=== PATIENT | male | born 1930 | race African-American/Black ===

== ENCOUNTER 2019-01-04 12:18 | Emergency (ER) | payer MEDICARE ==
[~2019-01-04] VITALS: Ht 188 cm; Wt 77.1 kg
[~2019-01-04 12:18] MED LIST: AMLO10TA8 PO; LOSA25TA54 PO; METF500T16 PO; METO-239 PO; PRAV20TA2 PO; REPA1TAB6 PO; RIVA20TA2 PO; SITA100T PO
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
--- NOTE | 2019-01-04 13:35 | EKG ---
[facility] [address] [place] [address] Test Date: 2019-01-04 Test Time: 12:41:28 Pat Name: MINERVA PALAFOX Department: Room: Gender: M Geriatric Care Manager: : 1930 Requested By: HARRIET NICOLAS Order Number: [id number] Reading MD: Measurements Intervals [place] Rate: 58 P: 41 MO: 170 QRS: -19 QRSD: 92 T: 57 QT: 380 QTc: 376 Interpretive Statements SINUS RHYTHM LEFTWARD AXIS NO SPECIFIC ECG ABNORMALITIES RI6.01 No previous ECG available for comparison
[2019-01-04 13:38] LABS: BASO # 0.1 x10^3/uL (0.0-0.2); BASO % 1 % (0-3); EOS # 0.1 x10^3/uL (0.0-0.7); EOS % 1 % (0-3); HEMATOCRIT 36.4 % (39.0-53.0); HEMOGLOBIN 11.9 g/dL (13.0-17.5); LYMPH # 1.7 x10^3/uL (1.0-4.8); LYMPH % 23 % (24-48); MEAN CORPUSCULAR HEMOGLOBIN 28 pg (25-35); MEAN CORPUSCULAR HGB CONC 33 g/dL (31-37); MEAN CORPUSCULAR VOLUME 87 fL (79-100); MONO # 0.5 x10^3/uL (0.0-1.1); MONO % 7 % (0-9); NEUT # 4.9 x10^3/uL (1.8-7.7); NEUT % 68 % (31-73); PLATELET COUNT 191 x10^3/uL (140-400); RED BLOOD COUNT 4.19 x10^6/uL (4.30-5.70); RED CELL DISTRIBUTION WIDTH 16.2 % (11.5-14.5); WHITE BLOOD COUNT 7.3 x10^3/uL (4.0-11.0)
[2019-01-04 13:55] LABS: ALBUMIN 3.7 g/dL (3.4-5.0); ALBUMIN/GLOBULIN RATIO 0.9 (1.0-1.7); CREATININE 1.3 mg/dL (0.7-1.3); POTASSIUM 4.9 mmol/L (3.5-5.1); TOTAL BILIRUBIN 0.5 mg/dL (0.2-1.0); TOTAL PROTEIN 7.9 g/dL (6.4-8.2)
[2019-01-04 13:55] LABS: BILIRUBIN,URINE NEGATIVE (NEG); CLARITY,URINE CLEAR; COLOR,URINE YELLOW; NITRITE,URINE NEGATIVE (NEG); PH,URINE 5.5; PROTEIN,URINE NEGATIVE (NEG-TRACE); UROBILINOGEN,URINE 0.2 mg/dL (0.2 mg/dL)
[2019-01-04 14:00] LABS: PROTHROMBIN TIME PATIENT 16.4 SEC (11.7-14.0)
[2019-01-04 14:08] LABS: CALCIUM 8.9 mg/dL (8.5-10.1)
[2019-01-04 14:19] LABS: BACTERIA,URINE 0 /HPF (0-FEW); RBC,URINE OCC /HPF (0-2); WBC,URINE OCC /HPF (0-4)
--- NOTE | 2019-01-04 14:45 | RAD ---
PQRS Compliance statement: One or more of the following individualized dose reduction techniques were utilized for this examination: 1. Automated exposure control. 2. Adjustment of the mA and/or kV according to patient size. 3. Use of iterative reconstruction technique. Indication:Abdominal pain. TECHNIQUE: CT abdomen and pelvis without IV contrast with multiplanar reformats. COMPARISON: None FINDINGS: Limited evaluation of solid abdominal and pelvic organs due to lack of IV contrast. Heart is normal in size. No pericardial or pleural effusion. Coronary artery calcifications noted. Clear lung bases. Fluid density lesion in right hepatic dome measuring 2.6 x 2.1 cm most likely simple hepatic cyst. Otherwise, noncontrast appearance of the liver, gallbladder, adrenals are normal limits. Spleen is nonvisualized likely surgically absent. Diffusely atrophic pancreas. No nephrolithiasis or hydronephrosis. No enlarged retroperitoneal or pelvic adenopathy. Diffuse mild atherosclerotic plaque in the abdominal aorta. No free pelvic fluid or ascites. No bowel obstruction. Appendix is not visualized. 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 Urinary bladder demonstrates no radiopaque stone. No pneumoperitoneum. Mild dextroscoliosis of the lumbar spine. No suspicious bony lesion. IMPRESSION: Limited evaluation of solid abdominal and pelvic organs due to lack of IV contrast. 1. No bowel obstruction. 2. No nephrolithiasis or hydronephrosis. Electronically signed by: Sal Shabazz DO (01/04/2019 2:42 PM) [facility]
--- NOTE | 2019-01-04 14:47 | RAD ---
PQRS Compliance statement: One or more of the following individualized dose reduction techniques were utilized for this examination: 1. Automated exposure control. 2. Adjustment of the mA and/or kV according to patient size. 3. Use of iterative reconstruction technique. Indication:Altered mental status. TECHNIQUE: CT head without IV contrast COMPARISON:01/16/2015 FINDINGS: No pathologic extra-axial or intra-axial fluid collection. Mild atrophy with ex vacuo dilation of the ventricles. The basal cisterns are within normal limits. No acute intracranial bleed. Periventricular and deep white matter low-attenuation is noted. No focal loss of cosme-white differentiation. No suspicious calvarial lesion. Visualized paranasal sinuses and mastoid air cells are clear. Atherosclerotic plaque seen in the bilateral cavernous segments of the ICA. IMPRESSION: 1. No acute intracranial bleed. 2. White matter changes likely secondary to chronic microvascular ischemic disease. If concern for acute ischemic stroke is high, please consider MRI brain. Electronically signed by: Sal Shabazz DO (01/04/2019 2:44 PM) [facility]
[2019-01-04 15:45] VITALS: BP 179/79
[2019-01-04 16:37] LABS: ANISOCYTOSIS SLIGHT; PLT ESTIMATE ADEQUATE (ADEQUATE)
[2019-01-04 16:38] LABS: ACANTHOCYTES FEW; BIZZARE CELLS FEW; SCHISTOCYTES FEW
== END 2019-01-04 16:20 | disposition home or self-care (01) ==
LOC: ER 12:18
DX: R32 Unspecified urinary incontinence (principal); R10.31 Right lower quadrant pain; D64.9 Anemia, unspecified; R53.1 Weakness; R74.8 Abnormal levels of other serum enzymes; G30.9 Alzheimer's disease, unspecified; F02.80 Dementia in other diseases classified elsewhere, unspecified severity, without behavioral disturbance, psychotic disturbance, mood disturbance, and anxiety; E78.00 Pure hypercholesterolemia, unspecified; I11.0 Hypertensive heart disease with heart failure; I50.9 Heart failure, unspecified; E11.9 Type 2 diabetes mellitus without complications; G89.29 Other chronic pain; Z98.890 Other specified postprocedural states
CPT/HCPCS: 36415; 70450; 74176; 80053; 81001; 82550; 82962; 83605; 83690; 84484; 85025; 85610; 93005; 99285-25

== ENCOUNTER → 2019-01-21 | Outpatient (CLI) | payer MEDICARE ==
[2019-01-04 15:45] VITALS: BP 179/79
--- NOTE | 2019-01-21 15:08 | CARD ---
MR#: [id number] Date of Study: 01/21/2019 Ordering Physician: SWETA CAMERON, Referring Physician: SWETA CAMERON, Tech: Jonelle Champion MAMADOU APPROVED REPORT EXAM: Two-dimensional and M-mode echocardiogram with Doppler and color Doppler. Other Information Quality : Good INDICATION Cardiomyopathy 2D DIMENSIONS RVDd2.3 (2.9-3.5cm)Left Atrium(2D)4.0 (1.6-4.0cm) IVSd0.9 (0.7-1.1cm)Aortic Root(2D)3.2 (2.0-3.7cm) LVDd5.7 (3.9-5.9cm)LVOT Diameter2.4 (1.8-2.4cm) PWd0.9 (0.7-1.1cm)LVDs3.7 (2.5-4.0cm) FS (%) 25.0 %SV98.2 ml LVEF(%)50.0 (>50%) Aortic Valve AoV Peak Navjot.144.6cm/sAoV VTI27.9cm AO Peak GR.8.4mmHgLVOT Peak Navjot.85.7cm/s AO Mean GR.5mmHgAVA (VMAX)2.79cm2 GASTON (VTI)3.20cm2 Mitral Valve MV E Ztczicaw93.2cm/sMV DECEL DMOT460cw MV A Qidvvnhq25.6cm/sE/A Ratio0.6 Tricuspid Valve TR P. Ygckqedg708br/sRAP LMNXUKNG0utPg TR Peak Gr.20lkDpVLSP85waEo Pulmonary Vein S1 Conuhqrg64.4cm/sD2 Vllgpljo43.6cm/s LEFT VENTRICLE The left ventricle is normal size. There is normal left ventricular wall thickness. Left ventricle sy stolic function is low normal. The Ejection Fraction is 50-55%. There is normal LV segmental wall mot ion. Transmitral Doppler flow pattern is Grade I-abnormal relaxation pattern. RIGHT VENTRICLE The right ventricle is normal size. The right ventricular systolic function is normal. ATRIA The left atrium is mildly dilated. The right atrium size is normal. The interatrial septum is intact with no evidence for an atrial septal defect or patent foramen ovale as noted on 2-D or Doppler imagi ng. AORTIC VALVE The aortic valve is moderately thickened but opens well. Doppler and Color Flow revealed no significa nt aortic regurgitation. There is no significant aortic valvular stenosis. MITRAL VALVE The mitral valve is calcified but opens well. There is no evidence of mitral valve prolapse. There is no mitral valve stenosis. Doppler and Color-flow revealed mild mitral regurgitation. TRICUSPID VALVE The tricuspid valve is normal in structure and function. Doppler and Color Flow revealed mild tricusp id regurgitation. The PA pressure was estimated at 34 mmHg. There is no tricuspid valve stenosis. PULMONIC VALVE The pulmonic valve is not well visualized. Doppler and Color Flow revealed trace to mild pulmonic marck vular regurgitation. There is no pulmonic valvular stenosis. GREAT VESSELS The aortic root is normal in size. The ascending aorta is normal in size. The IVC is normal in size a nd collapses >50% with inspiration. PERICARDIAL EFFUSION There is no evidence of significant pericardial effusion. Critical Notification Critical Value: No <Conclusion> Left ventricle systolic function is low normal. The Ejection Fraction is 50-55%. There is normal LV segmental wall motion. Doppler and Color Flow revealed mild tricuspid regurgitation. The PA pressure was estimated at 34 mmH g. Signed by : Osiel Leahy, Electronically Approved : 01/21/2019 15:08:20
== END | disposition home or self-care (01) ==
LOC: ECHO 12:48
PROVIDERS: ATTEND Internal Medicine Cardiovascular Disease
DX: I08.8 Other rheumatic multiple valve diseases (principal); I42.9 Cardiomyopathy, unspecified
CPT/HCPCS: 93306

== ENCOUNTER 2019-03-17 09:40 | Inpatient (IN) | payer MEDICARE ==
[~2019-03-17] VITALS: Ht 182.9 cm; Wt 71.4 kg
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
--- NOTE | 2019-03-17 11:20 | RAD ---
CT HEAD WO CONTRAST Clinical indications: Altered mental status. Confusion. COMPARISON: January 04, 2019. Technique: Noncontrast axial cross sectional scanning of the head was performed. PQRS compliance Statement One or more of the following individualized dose reduction techniques were utilized for this study: 1. Automated exposure control 2. Adjustment of the mA and/or kV according to patient size 3. Use of iterative reconstruction technique Findings: No acute intracranial hemorrhage or midline shift or mass-effect or hydrocephalus or extra-axial fluid collection is seen. Generalized cerebral atrophy is evident. Bilateral periventricular hypodensity is seen consistent with chronic small vessel ischemic disease which is unchanged. 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 No new focal hypodense area or sulci effacement is seen to indicate an acute infarct or edema radiographically. No skull fracture or pneumocephalus is seen. No opacification of the mastoid sinuses or the middle ear cavities or the paranasal sinuses is seen. The maxillary sinuses are not seen in this study. Impression: No new intracranial abnormality is seen. Chronic ischemic disease. Electronically signed by: Jarad Harley MD (03/17/2019 11:17 AM) [facility]
[2019-03-17 11:28] LABS: BASO % 0 % (0-3); EOS % 0 % (0-3); HEMATOCRIT 30.2 % (39.0-53.0); LYMPH # 0.7 x10^3/uL (1.0-4.8); LYMPH % 7 % (24-48); MEAN CORPUSCULAR HEMOGLOBIN 28 pg (25-35); MEAN CORPUSCULAR HGB CONC 33 g/dL (31-37); MEAN CORPUSCULAR VOLUME 85 fL (79-100); MONO # 0.8 x10^3/uL (0.0-1.1); MONO % 8 % (0-9); NEUT # 8.3 x10^3/uL (1.8-7.7); NEUT % 85 % (31-73); PLATELET COUNT 292 x10^3/uL (140-400); RED BLOOD COUNT 3.53 x10^6/uL (4.30-5.70); RED CELL DISTRIBUTION WIDTH 14.6 % (11.5-14.5); WHITE BLOOD COUNT 9.8 x10^3/uL (4.0-11.0)
[2019-03-17 11:39] LABS: CALCIUM 9.2 mg/dL (8.5-10.1); CREATININE 1.3 mg/dL (0.7-1.3); POTASSIUM 4.9 mmol/L (3.5-5.1)
[2019-03-17 11:43] LABS: PROTHROMBIN TIME PATIENT 19.2 SEC (11.7-14.0)
[2019-03-17 11:44] LABS: ALBUMIN 3.3 g/dL (3.4-5.0); ALBUMIN/GLOBULIN RATIO 0.7 (1.0-1.7); TOTAL BILIRUBIN 0.3 mg/dL (0.2-1.0); TOTAL PROTEIN 7.9 g/dL (6.4-8.2)
[2019-03-17] MEDS ORDERED: LABETALOL 20 MG/4 ML DISP.SYRIN. IVP ONE (12:00)
--- NOTE | 2019-03-17 12:28 | EKG ---
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
--- NOTE | 2019-03-17 13:03 | RAD ---
EXAM: Right lower extremity arterial Doppler sonogram. HISTORY: Cold foot. TECHNIQUE: Snow scale and color Doppler sonographic imaging of the right lower extremity arteries with spectral waveform analysis was performed. COMPARISON: None. FINDINGS: There are normal peak systolic velocities within the right lower extremity arteries. There are triphasic waveforms from the common femoral artery to popliteal artery and biphasic waveforms within the calf arteries. No hemodynamically significant stenosis or occlusion is seen. IMPRESSION: No Doppler evidence of hemodynamically significant stenosis or occlusion. Electronically signed by: Nanette Lopez MD (03/17/2019 1:00 PM) [place] [id number]
[2019-03-17] MEDS ORDERED: ONDANSETRON PF 4 MG/2 ML VIAL. IV PRN (13:15)
[2019-03-17] MEDS ORDERED: HYDROcodone/APAP 5/325MG 1 TAB TABLET PO ONE (14:15)
[2019-03-17 17:31] LABS: BILIRUBIN,URINE NEGATIVE (NEG); CLARITY,URINE CLOUDY; COLOR,URINE YELLOW; NITRITE,URINE NEGATIVE (NEG); PROTEIN,URINE 100 mg/dL (NEG-TRACE); UROBILINOGEN,URINE 0.2 mg/dL (0.2 mg/dL)
[2019-03-17 17:38] LABS: BACTERIA,URINE MANY /HPF (0-FEW); RBC,URINE OCC /HPF (0-2); SQUAMOUS EPITHELIAL CELL,UR OCC /LPF; WBC,URINE TNTC /HPF (0-4)
[2019-03-17 19:51] VITALS: BP 146/61
[2019-03-17 23:27] VITALS: BP 172/87
[2019-03-18 03:40] VITALS: BP 154/77
[2019-03-18 07:15] VITALS: BP 162/77
[2019-03-18] MEDS ORDERED: ACETAMINOPHEN 500 MG TABLET PO PRN (07:45)
[2019-03-18] MEDS ORDERED: DEXTROSE 50% 25 GM / 50ML DISP.SYRIN. IV PRN (07:45)
[2019-03-18] MEDS ORDERED: PRAV80TA2 PO (07:47)
[2019-03-18] MEDS ORDERED: SITA100T PO (07:47)
[2019-03-18] MEDS ORDERED: LOSA-73 PO (07:47)
[2019-03-18] MEDS ORDERED: REPA1TAB6 PO (07:47)
[2019-03-18] MEDS ORDERED: FURO20TA3 PO (07:47)
[2019-03-18] MEDS ORDERED: ASPI-612 PO (07:47)
[2019-03-18] MEDS ORDERED: GLIP5TAB22 PO (07:47)
--- NOTE | 2019-03-18 07:58 | PDOC ---
PROGRESS NOTES Subjective Subjective Patient sleeping, disoriented when awakened. Objective Objective Vital Signs Date Time Temp Pulse Resp B/P (MAP) Pulse Ox O2 Delivery O2 Flow Rate FiO2 03/18/19 03:40 99.2 84 18 154/77 (102) 97 Room Air 99.2 Intake and Output 03/18/19 07:00 Output Total 50 ml Balance -50 ml Output Urine Total 50 ml # Voids 5 Physical Exam Abdomen: Normal bowel sounds, Soft, No tenderness Heart: Regular rate Extremities: No edema General: Alert, No acute distress Lungs: Other (BS mildly decreased throughout but CTA) Assessment Assessment Problems Medical Problems: (1) Frequent falls Status: Acute (2) Syncope and collapse Status: Acute Plan Plan of Care 1. Syncope - found down at home, no further details available about circumstances or duration. Stable since admission, continue to monitor. 2. UTI - UA with WBC's TNTC. Culture pending, will start Rocephin. 3. memory loss - patient has history of this. CT head confirms small previous CVA and ischemic microvascular changes. Continue ASA and supportive care. Not safe to stay alone, was having more trouble with this at Independent Living facility. Will have SW talk to family about discharge plans. 4. DM2 - continue home meds, ADA diet and FSBG ordered. 5. Hx PAF - in sinus on telemetry, continue present medications including Xarelto per Cardiology. 6. HTN - continue home meds. 7. OA with some chronic joint pains - continue Tylenol prn. Xrays at admission show no acute fractures. 8. CHF - recent Echo showed preserved EF of 50% with mild diastolic dysfunction. Patient has been on low dose Lasix for LE edema, will hold and follow. 9. debility - therapies ordered. May have some difficulty participating due to memory loss. Comment Review of Relevant I have reviewed the following items morgan (where applicable) has been applied. Labs Laboratory Tests Test 03/17/19 10:40 03/17/19 17:18 03/17/19 17:24 03/17/19 20:40 White Blood Count 9.8 x10^3/uL (4.0-11.0) Red Blood Count 3.53 x10^6/uL (4.30-5.70) Hemoglobin 10.0 g/dL (13.0-17.5) Hematocrit 30.2 % (39.0-53.0) Mean Corpuscular Volume 85 fL (79-100) Mean Corpuscular Hemoglobin 28 pg (25-35) Mean Corpuscular Hemoglobin Concent 33 g/dL (31-37) Red Cell Distribution Width 14.6 % (11.5-14.5) Platelet Count 292 x10^3/uL (140-400) Neutrophils (%) (Auto) 85 % (31-73) Lymphocytes (%) (Auto) 7 % (24-48) Monocytes (%) (Auto) 8 % (0-9) Eosinophils (%) (Auto) 0 % (0-3) Basophils (%) (Auto) 0 % (0-3) Neutrophils # (Auto) 8.3 x10^3/uL (1.8-7.7) Lymphocytes # (Auto) 0.7 x10^3/uL (1.0-4.8) Monocytes # (Auto) 0.8 x10^3/uL (0.0-1.1) Eosinophils # (Auto) 0.0 x10^3/uL (0.0-0.7) Basophils # (Auto) 0.0 x10^3/uL (0.0-0.2) Prothrombin Time 19.2 SEC (11.7-14.0) Prothromb Time International Ratio 1.6 (0.8-1.1) Activated Partial Thromboplast Time 39 SEC (24-38) Sodium Level 142 mmol/L (136-145) Potassium Level 4.9 mmol/L (3.5-5.1) Chloride Level 105 mmol/L (98-107) Carbon Dioxide Level 27 mmol/L (21-32) Anion Gap 10 (6-14) Blood Urea Nitrogen 21 mg/dL (8-26) Creatinine 1.3 mg/dL (0.7-1.3) Estimated GFR (Cockcroft-Gault) 63.0 BUN/Creatinine Ratio 16 (6-20) Glucose Level 274 mg/dL (70-99) Calcium Level 9.2 mg/dL (8.5-10.1) Magnesium Level 2.0 mg/dL (1.8-2.4) Total Bilirubin 0.3 mg/dL (0.2-1.0) Aspartate Amino Transf (AST/SGOT) 16 U/L (15-37) Alanine Aminotransferase (ALT/SGPT) 17 U/L (16-63) Alkaline Phosphatase 81 U/L (46-116) Troponin I Quantitative < 0.017 ng/mL (0.000-0.055) Total Protein 7.9 g/dL (6.4-8.2) Albumin 3.3 g/dL (3.4-5.0) Albumin/Globulin Ratio 0.7 (1.0-1.7) Glucose (Fingerstick) 273 mg/dL (70-99) 334 mg/dL (70-99) Urine Color Yellow Urine Clarity Cloudy Urine pH 5.0 Urine Specific [place] 1.015 Urine Protein 100 mg/dL (NEG-TRACE) Urine Glucose (UA) 500 mg/dL (NEG) Urine Ketones (Stick) Negative mg/dL (NEG) Urine Blood Moderate (NEG) Urine Nitrite Negative (NEG) Urine Bilirubin Negative (NEG) Urine Urobilinogen Dipstick 0.2 mg/dL (0.2 mg/dL) Urine Leukocyte Esterase Large (NEG) Urine RBC Occ /HPF (0-2) Urine WBC Tntc /HPF (0-4) Urine Squamous Epithelial Cells Occ /LPF Urine Bacteria Many /HPF (0-FEW) Urine Mucus Slight /LPF Laboratory Tests Test 03/17/19 10:40 03/17/19 17:18 03/17/19 17:24 03/17/19 20:40 White Blood Count 9.8 x10^3/uL (4.0-11.0) Red Blood Count 3.53 x10^6/uL (4.30-5.70) Hemoglobin 10.0 g/dL (13.0-17.5) Hematocrit 30.2 % (39.0-53.0) Mean Corpuscular Volume 85 fL (79-100) Mean Corpuscular Hemoglobin 28 pg (25-35) Mean Corpuscular Hemoglobin Concent 33 g/dL (31-37) Red Cell Distribution Width 14.6 % (11.5-14.5) Platelet Count 292 x10^3/uL (140-400) Neutrophils (%) (Auto) 85 % (31-73) Lymphocytes (%) (Auto) 7 % (24-48) Monocytes (%) (Auto) 8 % (0-9) Eosinophils (%) (Auto) 0 % (0-3) Basophils (%) (Auto) 0 % (0-3) Neutrophils # (Auto) 8.3 x10^3/uL (1.8-7.7) Lymphocytes # (Auto) 0.7 x10^3/uL (1.0-4.8) Monocytes # (Auto) 0.8 x10^3/uL (0.0-1.1) Eosinophils # (Auto) 0.0 x10^3/uL (0.0-0.7) Basophils # (Auto) 0.0 x10^3/uL (0.0-0.2) Prothrombin Time 19.2 SEC (11.7-14.0) Prothromb Time International Ratio 1.6 (0.8-1.1) Activated Partial Thromboplast Time 39 SEC (24-38) Sodium Level 142 mmol/L (136-145) Potassium Level 4.9 mmol/L (3.5-5.1) Chloride Level 105 mmol/L (98-107) Carbon Dioxide Level 27 mmol/L (21-32) Anion Gap 10 (6-14) Blood Urea Nitrogen 21 mg/dL (8-26) Creatinine 1.3 mg/dL (0.7-1.3) Estimated GFR (Cockcroft-Gault) 63.0 BUN/Creatinine Ratio 16 (6-20) Glucose Level 274 mg/dL (70-99) Calcium Level 9.2 mg/dL (8.5-10.1) Magnesium Level 2.0 mg/dL (1.8-2.4) Total Bilirubin 0.3 mg/dL (0.2-1.0) Aspartate Amino Transf (AST/SGOT) 16 U/L (15-37) Alanine Aminotransferase (ALT/SGPT) 17 U/L (16-63) Alkaline Phosphatase 81 U/L (46-116) Troponin I Quantitative < 0.017 ng/mL (0.000-0.055) Total Protein 7.9 g/dL (6.4-8.2) Albumin 3.3 g/dL (3.4-5.0) Albumin/Globulin Ratio 0.7 (1.0-1.7) Glucose (Fingerstick) 273 mg/dL (70-99) 334 mg/dL (70-99) Urine Color Yellow Urine Clarity Cloudy Urine pH 5.0 Urine Specific [place] 1.015 Urine Protein 100 mg/dL (NEG-TRACE) Urine Glucose (UA) 500 mg/dL (NEG) Urine Ketones (Stick) Negative mg/dL (NEG) Urine Blood Moderate (NEG) Urine Nitrite Negative (NEG) Urine Bilirubin Negative (NEG) Urine Urobilinogen Dipstick 0.2 mg/dL (0.2 mg/dL) Urine Leukocyte Esterase Large (NEG) Urine RBC Occ /HPF (0-2) Urine WBC Tntc /HPF (0-4) Urine Squamous Epithelial Cells Occ /LPF Urine Bacteria Many /HPF (0-FEW) Urine Mucus Slight /LPF Medications Current Medications Labetalol HCl (Normodyne Iv Push) 20 mg 1X ONCE IVP Last administered on 03/17/19at 12:14; Start 03/17/19 at 12:00; Stop 03/17/19 at 12:01; Status DC Ondansetron HCl (Zofran) 4 mg PRN Q8HRS PRN IV NAUSEA/VOMITING; Start 03/17/19 at 13:15; Stop 03/18/19 at 13:14 Acetaminophen/ Hydrocodone Bitart (Lortab 5/325) 1 tab 1X ONCE PO Last administered on 03/17/19at 14:23; Start 03/17/19 at 14:15; Stop 03/17/19 at 14:16; Status DC Insulin Human Lispro (HumaLOG) 0-7 UNITS TIDWMEALS SQ ; Start 03/18/19 at 08:00 Dextrose (Dextrose 50%-Water Syringe) 12.5 gm PRN Q15MIN PRN IV SEE COMMENTS; Start 03/18/19 at 07:45 Ceftriaxone Sodium (Rocephin) 1 gm Q24H IVP ; Start 03/18/19 at 09:00 Acetaminophen (Tylenol) 1,000 mg PRN Q6HRS PRN PO pain; Start 03/18/19 at 07:45 Active Scripts Active Pravastatin Sodium 80 Mg Tablet 1 Tab PO DAILY Januvia (Sitagliptin Phosphate) 100 Mg Tablet 1 Tab PO DAILY Furosemide 20 Mg Tablet 1 Tab PO DAILY Glipizide Er (Glipizide) 5 Mg Tab.er.24 1 Tab PO DAILY Losartan Potassium 50 Mg Tablet 50 Mg PO DAILY 30 Days Aspirin Ec (Aspirin) 81 Mg Tablet.dr 1 Tab PO DAILY Repaglinide 1 Mg Tablet 1 Mg PO BIDAC 30 Days Reported Xarelto (Rivaroxaban) 20 Mg Tablet 20 Mg PO Januvia (Sitagliptin Phosphate) 100 Mg Tablet 100 Mg PO DAILY Metoprolol Succinate ( Xl ) (Metoprolol Succinate) 25 Mg Tab.er.24h 25 Mg PO DAILY Metformin Hcl 500 Mg Tablet 1 Tab PO BID Amlodipine Besylate 10 Mg Tablet 1 Tab PO DAILY Vitals/I & O Vital Sign - Last 24 Hours 03/17/19 03/17/19 03/17/19 03/17/19 09:40 10:29 11:12 11:40 Temp 98.2 98.2 Pulse 78 76 76 76 Resp 18 20 19 15 B/P (MAP) 220/98 (138) Pulse Ox 98 97 98 98 O2 Delivery Room Air 03/17/19 03/17/19 03/17/19 03/17/19 11:42 12:12 12:14 12:14 Pulse 72 78 70 78 Resp 15 18 15 B/P (MAP) 174/84 Pulse Ox 98 97 97 03/17/19 03/17/19 03/17/19 03/17/19 12:42 13:12 13:42 14:14 Pulse 68 72 80 88 Resp 15 15 22 18 Pulse Ox 97 97 97 97 03/17/19 03/17/19 03/17/19 03/17/19 14:23 14:42 15:42 16:49 Pulse 88 92 Resp 22 18 22 Pulse Ox 98 97 96 O2 Delivery Room Air Room Air 03/17/19 03/17/19 03/17/19 03/18/19 19:51 20:00 23:27 03:40 Temp 98.6 98.5 99.2 98.6 98.5 99.2 Pulse 73 83 84 Resp 18 16 18 B/P (MAP) 146/61 (89) 172/87 (115) 154/77 (102) Pulse Ox 96 94 97 O2 Delivery Room Air Room Air Room Air Room Air Intake and Output 03/17/19 03/17/19 03/18/19 15:00 23:00 07:00 Output Total 50 ml Balance -50 ml LIS FREDERICK MD Mar 18, 2019 07:58
[2019-03-18] MEDS: INSULIN LISPRO 300 UNITS/3 ML VIAL. SQ SCH ×3 (08:00→17:00)
[2019-03-18] MEDS: ASPIRIN ENTERIC COATED 81 MG TABLET.DR. PO SCH (08:47)
[2019-03-18] MEDS: REPAGLINIDE 0.5 MG TABLET PO SCH ×2 (08:47→17:58)
[2019-03-18] MEDS: glipiZIDE ER 2.5 MG TAB.ER.24 PO SCH ×2 (08:47→08:50)
[2019-03-18] MEDS: metFORMIN 500 MG TABLET PO SCH ×2 (08:48→17:58)
[2019-03-18] MEDS: amLODIPine BESYLATE 10 MG TABLET PO SCH (08:48)
[2019-03-18] MEDS: LINAGLIPTIN 5 MG TABLET PO SCH (08:48)
[2019-03-18] MEDS: METOPROLOL SUCC 24HR ER 25 MG TAB.ER.24H. PO SCH (08:49)
[2019-03-18] MEDS: cefTRIAXone IV Push 1 GM VIAL. IVP SCH (08:51)
[2019-03-18] MEDS ORDERED: LOSARTAN POTASSIUM 50 MG TABLET. PO SCH (09:00)
[2019-03-18] MEDS ORDERED: FLU VAX QS 2019-20 (36MOS+)/PF 0.5 ML SYRINGE. VAX IM ONE (09:00)
[2019-03-18] MEDS ORDERED: NON FORMULARY ITEM (Sitagliptin Phosphate (Januvia) 100 MG) PO SCH (09:00)
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
[2019-03-18 11:04] VITALS: BP 156/69
[2019-03-18 15:02] VITALS: BP 151/73
[2019-03-18] MEDS ORDERED: RIVAROXABAN 10 MG TABLET. PO SCH (17:00)
[2019-03-18 19:20] VITALS: BP 143/62
[2019-03-18] MEDS: LACTOBACILLUS RHAMNOSUS GG 1 CAPSULE. PO SCH (21:32)
[2019-03-18] MEDS: ATORVASTATIN CALCIUM 20 MG TABLET PO SCH (21:32)
[2019-03-18 23:15] VITALS: BP 142/84
[2019-03-19 03:15] VITALS: BP 168/81
[2019-03-19 05:09] LABS: CREATININE 1.5 mg/dL (0.7-1.3); GFR 53.4
[2019-03-19 07:00] VITALS: BP 154/70
[2019-03-19] MEDS ORDERED: LORazepam 0.5 MG TABLET PO PRN (08:00)
[2019-03-19] MEDS: INSULIN LISPRO 300 UNITS/3 ML VIAL. SQ SCH ×3 (08:00→17:00)
--- NOTE | 2019-03-19 08:03 | PDOC ---
PROGRESS NOTES Subjective Subjective Patient alert, denies pain. Objective Objective Vital Signs Date Time Temp Pulse Resp B/P (MAP) Pulse Ox O2 Delivery O2 Flow Rate FiO2 03/19/19 03:15 98.8 78 18 168/81 (110) 98 Room Air 98.8 Intake and Output 03/19/19 07:00 Intake Total 1330 ml Balance 1330 ml Intake Oral 1330 ml # Voids 7 Physical Exam Abdomen: Normal bowel sounds, Soft, No tenderness Heart: Regular rate Extremities: No edema General: Alert (oriented to person only), No acute distress Lungs: Clear to auscultation Assessment Assessment Problems Medical Problems: (1) Frequent falls Status: Acute (2) Syncope and collapse Status: Acute Plan Plan of Care 1. UTI - urine culture pending, continue Rocephin. 2. possible syncope - has remained in sinus rhythm on telemetry, no further symptoms. 3. memory loss - patient appears close to his recent baseline on this. Does interfere with his ability to participate in PT. Will start Aricept. PO Ativan available if agitation is troublesome. 4. HTN - BP remains mildly elevated on his home medications, will increase Lo sartan and follow. 5. DM2 - somewhat labile, continue home meds and follow [facility]. 6. CHF with mild diastolic dysfunction - stable. 7. OA - Tylenol prn. 8. debility - does not appear safe to return to independent living at this time. SW consult pending. 9. Hx PAF - remains in sinus, continue present medications per Cardiology. Comment Review of Relevant I have reviewed the following items morgan (where applicable) has been applied. Labs Laboratory Tests Test 03/17/19 10:40 03/17/19 17:18 03/17/19 17:24 03/17/19 20:40 White Blood Count 9.8 x10^3/uL (4.0-11.0) Red Blood Count 3.53 x10^6/uL (4.30-5.70) Hemoglobin 10.0 g/dL (13.0-17.5) Hematocrit 30.2 % (39.0-53.0) Mean Corpuscular Volume 85 fL (79-100) Mean Corpuscular Hemoglobin 28 pg (25-35) Mean Corpuscular Hemoglobin Concent 33 g/dL (31-37) Red Cell Distribution Width 14.6 % (11.5-14.5) Platelet Count 292 x10^3/uL (140-400) Neutrophils (%) (Auto) 85 % (31-73) Lymphocytes (%) (Auto) 7 % (24-48) Monocytes (%) (Auto) 8 % (0-9) Eosinophils (%) (Auto) 0 % (0-3) Basophils (%) (Auto) 0 % (0-3) Neutrophils # (Auto) 8.3 x10^3/uL (1.8-7.7) Lymphocytes # (Auto) 0.7 x10^3/uL (1.0-4.8) Monocytes # (Auto) 0.8 x10^3/uL (0.0-1.1) Eosinophils # (Auto) 0.0 x10^3/uL (0.0-0.7) Basophils # (Auto) 0.0 x10^3/uL (0.0-0.2) Prothrombin Time 19.2 SEC (11.7-14.0) Prothromb Time International Ratio 1.6 (0.8-1.1) Activated Partial Thromboplast Time 39 SEC (24-38) Sodium Level 142 mmol/L (136-145) Potassium Level 4.9 mmol/L (3.5-5.1) Chloride Level 105 mmol/L (98-107) Carbon Dioxide Level 27 mmol/L (21-32) Anion Gap 10 (6-14) Blood Urea Nitrogen 21 mg/dL (8-26) Creatinine 1.3 mg/dL (0.7-1.3) Estimated GFR (Cockcroft-Gault) 63.0 BUN/Creatinine Ratio 16 (6-20) Glucose Level 274 mg/dL (70-99) Calcium Level 9.2 mg/dL (8.5-10.1) Magnesium Level 2.0 mg/dL (1.8-2.4) Total Bilirubin 0.3 mg/dL (0.2-1.0) Aspartate Amino Transf (AST/SGOT) 16 U/L (15-37) Alanine Aminotransferase (ALT/SGPT) 17 U/L (16-63) Alkaline Phosphatase 81 U/L (46-116) Troponin I Quantitative < 0.017 ng/mL (0.000-0.055) Total Protein 7.9 g/dL (6.4-8.2) Albumin 3.3 g/dL (3.4-5.0) Albumin/Globulin Ratio 0.7 (1.0-1.7) Glucose (Fingerstick) 273 mg/dL (70-99) 334 mg/dL (70-99) Urine Color Yellow Urine Clarity Cloudy Urine pH 5.0 Urine Specific [place] 1.015 Urine Protein 100 mg/dL (NEG-TRACE) Urine Glucose (UA) 500 mg/dL (NEG) Urine Ketones (Stick) Negative mg/dL (NEG) Urine Blood Moderate (NEG) Urine Nitrite Negative (NEG) Urine Bilirubin Negative (NEG) Urine Urobilinogen Dipstick 0.2 mg/dL (0.2 mg/dL) Urine Leukocyte Esterase Large (NEG) Urine RBC Occ /HPF (0-2) Urine WBC Tntc /HPF (0-4) Urine Squamous Epithelial Cells Occ /LPF Urine Bacteria Many /HPF (0-FEW) Urine Mucus Slight /LPF Test 03/18/19 07:18 03/18/19 11:22 03/18/19 17:04 03/18/19 21:34 Glucose (Fingerstick) 223 mg/dL (70-99) 212 mg/dL (70-99) 67 mg/dL (70-99) 207 mg/dL (70-99) Test 03/19/19 03:56 Sodium Level 139 mmol/L (136-145) Potassium Level 4.0 mmol/L (3.5-5.1) Chloride Level 103 mmol/L (98-107) Carbon Dioxide Level 28 mmol/L (21-32) Anion Gap 8 (6-14) Blood Urea Nitrogen 18 mg/dL (8-26) Creatinine 1.5 mg/dL (0.7-1.3) Estimated GFR (Cockcroft-Gault) 53.4 Glucose Level 112 mg/dL (70-99) Calcium Level 9.0 mg/dL (8.5-10.1) Laboratory Tests Test 03/18/19 11:22 03/18/19 17:04 03/18/19 21:34 03/19/19 03:56 Glucose (Fingerstick) 212 mg/dL (70-99) 67 mg/dL (70-99) 207 mg/dL (70-99) Sodium Level 139 mmol/L (136-145) Potassium Level 4.0 mmol/L (3.5-5.1) Chloride Level 103 mmol/L (98-107) Carbon Dioxide Level 28 mmol/L (21-32) Anion Gap 8 (6-14) Blood Urea Nitrogen 18 mg/dL (8-26) Creatinine 1.5 mg/dL (0.7-1.3) Estimated GFR (Cockcroft-Gault) 53.4 Glucose Level 112 mg/dL (70-99) Calcium Level 9.0 mg/dL (8.5-10.1) Medications Current Medications Labetalol HCl (Normodyne Iv Push) 20 mg 1X ONCE IVP Last administered on 03/17/19at 12:14; Start 03/17/19 at 12:00; Stop 03/17/19 at 12:01; Status DC Ondansetron HCl (Zofran) 4 mg PRN Q8HRS PRN IV NAUSEA/VOMITING; Start 03/17/19 at 13:15; Stop 03/18/19 at 13:14; Status DC Acetaminophen/ Hydrocodone Bitart (Lortab 5/325) 1 tab 1X ONCE PO Last administered on 03/17/19at 14:23; Start 03/17/19 at 14:15; Stop 03/17/19 at 14:16; Status DC Insulin Human Lispro (HumaLOG) 0-7 UNITS TIDWMEALS SQ Last administered on 03/18/19at 13:00; Start 03/18/19 at 08:00 Dextrose (Dextrose 50%-Water Syringe) 12.5 gm PRN Q15MIN PRN IV SEE COMMENTS; Start 03/18/19 at 07:45 Ceftriaxone Sodium (Rocephin) 1 gm Q24H IVP Last administered on 03/18/19at 08:51; Start 03/18/19 at 09:00 Acetaminophen (Tylenol) 1,000 mg PRN Q6HRS PRN PO pain; Start 03/18/19 at 07:45 Amlodipine Besylate (Norvasc) 10 mg DAILY PO Last administered on 03/18/19at 08:48; Start 03/18/19 at 09:00 Aspirin (Ecotrin) 81 mg DAILY PO Last administered on 03/18/19at 08:47; Start 03/18/19 at 09:00 Losartan Potassium (Cozaar) 50 mg DAILY PO Last administered on 03/18/19 08:48; Start 03/18/19 at 09:00 Metformin HCl (Glucophage) 500 mg BIDWMEALS PO Last administered on 03/18/19 17:58; Start 03/18/19 at 09:00 Metoprolol Succinate (Toprol Xl) 25 mg DAILY PO Last administered on 03/18/19 08:49; Start 03/18/19 at 09:00 Glipizide (Glucotrol Er) 5 mg DAILY08 PO Last administered on 03/18/19 08:50; Start 03/18/19 at 08:00 Atorvastatin Calcium (Lipitor) 20 mg QHS PO Last administered on 03/18/19 21:32; Start 03/18/19 at 21:00 Repaglinide (Prandin) 1 mg BIDAC PO Last administered on 03/18/19 17:58; Start 03/18/19 at 08:00 Linagliptin (Tradjenta) 5 mg DAILY PO Last administered on 03/18/19 08:48; Start 03/18/19 at 09:00 Non-Formulary Medication (Sitagliptin Phosphate (Januvia)) 100 mg DAILY PO ; Start 03/18/19 at 09:00; Status UNV Rivaroxaban (Xarelto) 20 mg DAILYWSUP PO Last administered on 03/18/19at 17:59; Start 03/18/19 at 17:00 Influenza Virus Vaccine Quadrival (Afluria Quad 2019-20 (3yr Up) Syringe) 0.5 ml ONCE ONCE VAX IM Last administered on 03/18/19at 13:00; Start 03/18/19 at 09:00; Stop 03/18/19 at 09:01; Status DC Lactobacillus Rhamnosus (Culturelle) 1 cap BID PO Last administered on 03/18/19at 21:32; Start 03/18/19 at 21:00 Lorazepam (Ativan Inj) 0.25 mg PRN Q6HRS PRN IV ANXIETY / AGITATION; Start 03/18/19 at 17:30 Active Scripts Active Pravastatin Sodium 80 Mg Tablet 1 Tab PO DAILY Furosemide 20 Mg Tablet 1 Tab PO DAILY Glipizide Er (Glipizide) 5 Mg Tab.er.24 1 Tab PO DAILY Losartan Potassium 50 Mg Tablet 50 Mg PO DAILY 30 Days Aspirin Ec (Aspirin) 81 Mg Tablet.dr 1 Tab PO DAILY Repaglinide 1 Mg Tablet 1 Mg PO BIDAC 30 Days Reported Xarelto (Rivaroxaban) 20 Mg Tablet 20 Mg PO Januvia (Sitagliptin Phosphate) 100 Mg Tablet 100 Mg PO DAILY Metoprolol Succinate ( Xl ) (Metoprolol Succinate) 25 Mg Tab.er.24h 25 Mg PO DAILY Metformin Hcl 500 Mg Tablet 1 Tab PO BID Amlodipine Besylate 10 Mg Tablet 1 Tab PO DAILY Vitals/I & O Vital Sign - Last 24 Hours 03/18/19 03/18/19 03/18/19 03/18/19 08:00 08:48 08:48 08:49 Pulse 82 82 82 B/P (MAP) 162/77 162/77 162/77 O2 Delivery Room Air 03/18/19 03/18/19 03/18/19 03/18/19 11:04 15:02 19:20 20:20 Temp 98.5 98.7 98.3 98.5 98.7 98.3 Pulse 78 80 88 Resp 18 20 18 B/P (MAP) 156/69 (98) 151/73 (99) 143/62 (89) Pulse Ox 98 97 98 O2 Delivery Room Air Room Air Room Air Room Air 03/18/19 03/19/19 23:15 03:15 Temp 98.6 98.8 98.6 98.8 Pulse 79 78 Resp 18 18 B/P (MAP) 142/84 (103) 168/81 (110) Pulse Ox 94 98 O2 Delivery Room Air Room Air Intake and Output 03/18/19 03/18/19 03/19/19 15:00 23:00 07:00 Intake Total 360 ml 120 ml 850 ml Balance 360 ml 120 ml 850 ml LIS FREDERICK MD Mar 19, 2019 08:03
[2019-03-19] MEDS: ASPIRIN ENTERIC COATED 81 MG TABLET.DR. PO SCH (08:26)
[2019-03-19] MEDS: LACTOBACILLUS RHAMNOSUS GG 1 CAPSULE. PO SCH ×2 (08:26→21:00)
[2019-03-19] MEDS: glipiZIDE ER 2.5 MG TAB.ER.24 PO SCH (08:26)
[2019-03-19] MEDS: REPAGLINIDE 0.5 MG TABLET PO SCH ×2 (08:26→17:22)
[2019-03-19] MEDS: metFORMIN 500 MG TABLET PO SCH ×2 (08:27→17:22)
[2019-03-19] MEDS: METOPROLOL SUCC 24HR ER 25 MG TAB.ER.24H. PO SCH (08:27)
[2019-03-19] MEDS: amLODIPine BESYLATE 10 MG TABLET PO SCH (08:27)
[2019-03-19] MEDS: LOSARTAN POTASSIUM 50 MG TABLET. PO SCH (08:27)
[2019-03-19] MEDS: LINAGLIPTIN 5 MG TABLET PO SCH (08:27)
[2019-03-19] MEDS: DONEPEZIL HCL 5 MG TABLET. PO SCH (08:27)
[2019-03-19] MEDS: cefTRIAXone IV Push 1 GM VIAL. IVP SCH (08:29)
--- NOTE | 2019-03-19 09:40 | NUR ---
SW consulted for dc planning. Chart reviewed. Pt lives at [facility] but might need SNU/LTC placement. OT recommends SNU. SW will await for PT assessment to initiate SNU evaluation. Discussed with RN.
[2019-03-19 11:25] VITALS: BP 163/79
--- NOTE | 2019-03-19 13:21 | NUR ---
Wound care: Patient seen per wound care consult. See wound assessment. 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 Wound is cleansed and assessed. Recommendations for A & D ointment as patient is incontinent. Brief changed and ointment applied. A P-500 bed and wheelchair cushion was ordered for this patient. Dressing change instructions left in room. No other wounds noted. Patient assisted back to chair. Call light in reach. Will follow patient regarding wound care.
[2019-03-19 15:18] VITALS: BP 160/77
[2019-03-19] MEDS ORDERED: RIVAROXABAN 10 MG TABLET. PO SCH (17:00)
--- NOTE | 2019-03-19 17:25 | NUR ---
Patient is refusing lunch and dinner today. Only willing to eat a small bowl of jello at dinner.
[2019-03-19 19:44] VITALS: BP 138/75
[2019-03-19] MEDS ORDERED: VITS A & D/LANOLIN TOPICAL OINTMENT 42GM TUBE. TP PRN (21:00)
[2019-03-19] MEDS: ATORVASTATIN CALCIUM 20 MG TABLET PO SCH (21:00)
[2019-03-19 23:00] VITALS: BP 118/69
[2019-03-20 03:00] VITALS: BP 133/71
[2019-03-20 07:00] VITALS: BP 155/73
[2019-03-20] MEDS: INSULIN LISPRO 300 UNITS/3 ML VIAL. SQ SCH ×3 (08:00→17:00)
--- NOTE | 2019-03-20 08:13 | PDOC ---
PROGRESS NOTES Subjective Subjective Patient resting calmly, denies pain. Objective Objective Vital Signs Date Time Temp Pulse Resp B/P (MAP) Pulse Ox O2 Delivery O2 Flow Rate FiO2 03/20/19 03:00 97.4 72 18 133/71 (91) 96 97.4 03/19/19 23:00 Room Air Intake and Output 03/20/19 07:00 Intake Total 860 ml Balance 860 ml Intake Oral 860 ml # Voids 1 Physical Exam Abdomen: Normal bowel sounds, Soft, No tenderness Heart: Regular rate Extremities: No edema General: Alert, No acute distress Lungs: Clear to auscultation Assessment Assessment Problems Medical Problems: (1) Frequent falls Status: Acute (2) Syncope and collapse Status: Acute Plan Plan of Care 1. UTI - E Coli, sensitivity pending. Patient pulled out IV yesterday, continue IM Rocephin for today, hope to change to po tomorrow. 2. memory loss - agitation a little improved, able to cooperate with therapies yesterday. Started on Aricept, continue. Ativan prn agitation. 3. HTN - BP improved with increased Losartan yesterday, continue present medications. 4. DM2 - fairly well controlled, continue Metformin and SS. 5. CHF with diastolic dysfunction - stable, 6. hx PAF - clinically remains in sinus. Continue medication per Cardiology. 7. OA - Tylenol prn. 8. debility - transfer to [facility] when arrangements can be made. Discussed with patient's daughter yesterday, she is well aware that he needs more assistance than is available at his previous living situation. Encouraged to discuss with SW, should be appropriate for discharge Sunday. Comment Review of Relevant I have reviewed the following items morgan (where applicable) has been applied. Labs Laboratory Tests Test 03/18/19 11:22 03/18/19 17:04 03/18/19 21:34 03/19/19 03:56 Glucose (Fingerstick) 212 mg/dL (70-99) 67 mg/dL (70-99) 207 mg/dL (70-99) Sodium Level 139 mmol/L (136-145) Potassium Level 4.0 mmol/L (3.5-5.1) Chloride Level 103 mmol/L (98-107) Carbon Dioxide Level 28 mmol/L (21-32) Anion Gap 8 (6-14) Blood Urea Nitrogen 18 mg/dL (8-26) Creatinine 1.5 mg/dL (0.7-1.3) Estimated GFR (Cockcroft-Gault) 53.4 Glucose Level 112 mg/dL (70-99) Calcium Level 9.0 mg/dL (8.5-10.1) Test 03/19/19 07:57 03/19/19 11:54 03/19/19 16:58 03/19/19 20:30 Glucose (Fingerstick) 125 mg/dL (70-99) 163 mg/dL (70-99) 179 mg/dL (70-99) 234 mg/dL (70-99) Test 03/20/19 07:52 Glucose (Fingerstick) 150 mg/dL (70-99) Laboratory Tests Test 03/19/19 11:54 03/19/19 16:58 03/19/19 20:30 03/20/19 07:52 Glucose (Fingerstick) 163 mg/dL (70-99) 179 mg/dL (70-99) 234 mg/dL (70-99) 150 mg/dL (70-99) Microbiology 03/17/19 Urine Culture - Preliminary, Resulted 03/17/19 Urine Culture Result 1 (MARTA) - Preliminary, Resulted Medications Current Medications Labetalol HCl (Normodyne Iv Push) 20 mg 1X ONCE IVP Last administered on 03/17/19at 12:14; Start 03/17/19 at 12:00; Stop 03/17/19 at 12:01; Status DC Ondansetron HCl (Zofran) 4 mg PRN Q8HRS PRN IV NAUSEA/VOMITING; Start 03/17/19 at 13:15; Stop 03/18/19 at 13:14; Status DC Acetaminophen/ Hydrocodone Bitart (Lortab 5/325) 1 tab 1X ONCE PO Last administered on 03/17/19at 14:23; Start 03/17/19 at 14:15; Stop 03/17/19 at 14:16; Status DC Insulin Human Lispro (HumaLOG) 0-7 UNITS TIDWMEALS SQ Last administered on 03/18/19at 13:00; Start 03/18/19 at 08:00 Dextrose (Dextrose 50%-Water Syringe) 12.5 gm PRN Q15MIN PRN IV SEE COMMENTS; Start 03/18/19 at 07:45 Ceftriaxone Sodium (Rocephin) 1 gm Q24H IVP Last administered on 03/19/19 08:29; Start 03/18/19 at 09:00; Stop 03/19/19 at 10:31; Status DC Acetaminophen (Tylenol) 1,000 mg PRN Q6HRS PRN PO pain Last administered on 03/19/19 21:00; Start 03/18/19 at 07:45 Amlodipine Besylate (Norvasc) 10 mg DAILY PO Last administered on 03/19/19 08:27; Start 03/18/19 at 09:00 Aspirin (Ecotrin) 81 mg DAILY PO Last administered on 03/19/19 08:26; Start 03/18/19 at 09:00 Losartan Potassium (Cozaar) 50 mg DAILY PO Last administered on 03/18/19 08:48; Start 03/18/19 at 09:00; Stop 03/19/19 at 07:55; Status DC Metformin HCl (Glucophage) 500 mg BIDWMEALS PO Last administered on 03/19/19 17:22; Start 03/18/19 at 09:00 Metoprolol Succinate (Toprol Xl) 25 mg DAILY PO Last administered on 03/19/19 08:27; Start 03/18/19 at 09:00 Glipizide (Glucotrol Er) 5 mg DAILY08 PO Last administered on 03/19/19 08:26; Start 03/18/19 at 08:00 Atorvastatin Calcium (Lipitor) 20 mg QHS PO Last administered on 03/19/19 21:00; Start 03/18/19 at 21:00 Repaglinide (Prandin) 1 mg BIDAC PO Last administered on 03/19/19 17:22; Start 03/18/19 at 08:00 Linagliptin (Tradjenta) 5 mg DAILY PO Last administered on 03/19/19 08:27; Start 03/18/19 at 09:00 Non-Formulary Medication (Sitagliptin Phosphate (Januvia)) 100 mg DAILY PO ; Start 03/18/19 at 09:00; Status UNV Rivaroxaban (Xarelto) 20 mg DAILYWSUP PO Last administered on 03/18/19 17:59; Start 03/18/19 at 17:00; Stop 03/19/19 at 15:48; Status DC Influenza Virus Vaccine Quadrival (Afluria Quad 2019-20 (3yr Up) Syringe) 0.5 ml ONCE ONCE VAX IM Last administered on 03/18/19at 13:00; Start 03/18/19 at 09:00; Stop 03/18/19 at 09:01; Status DC Lactobacillus Rhamnosus (Culturelle) 1 cap BID PO Last administered on 03/19/19at 21:00; Start 03/18/19 at 21:00 Lorazepam (Ativan Inj) 0.25 mg PRN Q6HRS PRN IV ANXIETY / AGITATION; Start 03/18/19 at 17:30; Stop 03/19/19 at 07:55; Status DC Losartan Potassium (Cozaar) 100 mg DAILY PO Last administered on 03/19/19at 08:27; Start 03/19/19 at 09:00 Lorazepam (Ativan) 0.25 mg PRN Q6HRS PRN PO agitation Last administered on at 21:00; Start 03/19/19 at 08:00 Donepezil HCl (Aricept) 5 mg DAILY PO Last administered on 03/19/19at 08:27; Start 03/19/19 at 09:00 Ceftriaxone Sodium (Rocephin Im) 1 gm DAILY IM ; Start 03/20/19 at 09:00 Vitamin A/Vitamin D (Vitamin A & D Ointment) 1 wyatt PRN BID PRN TP SKIN PROTECTION; Start 03/19/19 at 21:00 Rivaroxaban (Xarelto) 15 mg DAILYWSUP PO Last administered on 03/19/19at 17:22; Start 03/19/19 at 17:00 Active Scripts Active Pravastatin Sodium 80 Mg Tablet 1 Tab PO DAILY Furosemide 20 Mg Tablet 1 Tab PO DAILY Glipizide Er (Glipizide) 5 Mg Tab.er.24 1 Tab PO DAILY Losartan Potassium 50 Mg Tablet 50 Mg PO DAILY 30 Days Aspirin Ec (Aspirin) 81 Mg Tablet.dr 1 Tab PO DAILY Repaglinide 1 Mg Tablet 1 Mg PO BIDAC 30 Days Reported Xarelto (Rivaroxaban) 20 Mg Tablet 20 Mg PO Januvia (Sitagliptin Phosphate) 100 Mg Tablet 100 Mg PO DAILY Metoprolol Succinate ( Xl ) (Metoprolol Succinate) 25 Mg Tab.er.24h 25 Mg PO DAILY Metformin Hcl 500 Mg Tablet 1 Tab PO BID Amlodipine Besylate 10 Mg Tablet 1 Tab PO DAILY Vitals/I & O Vital Sign - Last 24 Hours 03/19/19 03/19/19 03/19/19 03/19/19 08:27 08:27 08:27 08:30 Pulse 78 78 78 B/P (MAP) 154/70 154/70 154/70 O2 Delivery Room Air 03/19/19 03/19/19 03/19/19 03/19/19 11:25 15:18 19:44 20:12 Temp 98.5 98.5 98.0 98.5 98.5 98.0 Pulse 71 81 83 Resp 16 18 20 B/P (MAP) 163/79 (107) 160/77 (104) 138/75 (96) Pulse Ox 99 99 98 O2 Delivery Room Air Room Air Room Air Room Air 03/19/19 03/20/19 23:00 03:00 Temp 97.9 97.4 97.9 97.4 Pulse 84 72 Resp 16 18 B/P (MAP) 118/69 (85) 133/71 (91) Pulse Ox 97 96 O2 Delivery Room Air Intake and Output 03/19/19 03/19/19 03/20/19 15:00 23:00 07:00 Intake Total 320 ml 360 ml 180 ml Balance 320 ml 360 ml 180 ml LIS FREDERICK MD Mar 20, 2019 08:13
[2019-03-20] MEDS: LOSARTAN POTASSIUM 50 MG TABLET. PO SCH (08:41)
[2019-03-20] MEDS: REPAGLINIDE 0.5 MG TABLET PO SCH ×2 (08:41→17:32)
[2019-03-20] MEDS: amLODIPine BESYLATE 10 MG TABLET PO SCH (08:41)
[2019-03-20] MEDS: DONEPEZIL HCL 5 MG TABLET. PO SCH (08:42)
[2019-03-20] MEDS: LINAGLIPTIN 5 MG TABLET PO SCH (08:42)
[2019-03-20] MEDS: ASPIRIN ENTERIC COATED 81 MG TABLET.DR. PO SCH (08:42)
[2019-03-20] MEDS: metFORMIN 500 MG TABLET PO SCH ×2 (08:42→17:00)
[2019-03-20] MEDS: cefTRIAXone IM 1 GM VIAL IM SCH (08:42)
[2019-03-20] MEDS: METOPROLOL SUCC 24HR ER 25 MG TAB.ER.24H. PO SCH (08:42)
[2019-03-20] MEDS: LACTOBACILLUS RHAMNOSUS GG 1 CAPSULE. PO SCH ×2 (08:49→21:39)
[2019-03-20 11:00] VITALS: BP 132/63
[2019-03-20] MEDS ORDERED: ANTI-COAG MONITOR BY PHARMACY. MC PRN (11:15)
[2019-03-20 15:00] VITALS: BP 160/90
--- NOTE | 2019-03-20 16:42 | NUR ---
SW following pt. SW spoke with pt's brother and daughter regarding SNU vs LTC, options and insurance coverage. Family is provided with list of SNU and medicare ratings. They chose [facility]. Pt's family is provided with a copy of Medicaid application and SWer encouraged them to apply as soon as possible for LTC placement. Plan 1. SW phoned and faxed referral to [facility] and [facility]. [facility] declined, [facility] has accepted pt. 2. Spoke with pt's brother and sister in law via phone, agreeable with [facility] requesting insurance auth. 3. Anticipate pt will dc to [facility] pending insurance auth. Will continue to follow.
[2019-03-20] MEDS ORDERED: RIVAROXABAN 15 MG TABLET. PO SCH (17:00)
[2019-03-20 19:00] VITALS: BP 145/84
[2019-03-20] MEDS: ATORVASTATIN CALCIUM 20 MG TABLET PO SCH (21:39)
[2019-03-20 23:00] VITALS: BP 128/79
[2019-03-21 03:00] VITALS: BP 133/80
[2019-03-21 07:00] VITALS: BP 157/75
[2019-03-21] MEDS: INSULIN LISPRO 300 UNITS/3 ML VIAL. SQ SCH ×2 (08:00→11:56)
--- NOTE | 2019-03-21 08:07 | PDOC ---
PROGRESS NOTES Subjective Subjective Patient without complaint. Objective Objective Vital Signs Date Time Temp Pulse Resp B/P (MAP) Pulse Ox O2 Delivery O2 Flow Rate FiO2 03/21/19 03:00 98.8 75 16 133/80 (97) 97 Room Air 98.8 Physical Exam Abdomen: Normal bowel sounds, Soft, No tenderness Heart: Regular rate Extremities: No edema General: Alert, No acute distress Lungs: Clear to auscultation Assessment Assessment Problems Medical Problems: (1) Frequent falls Status: Acute (2) Syncope and collapse Status: Acute Plan Plan of Care 1. UTI - final culture still pending. Will continue Rocephin IM for today, discharge on po Keflex. 2. possible syncope prior to admission - has remained stable since admission. 3. memory loss - continue Aricept and supportive care. 4. HTN - somewhat labile but fairly well controlled, continue present medications 5. DM2 - controlled, continue po meds. 6. hx PAF - has clinically remained in sinus, continue his usual medications per Cardiology. 7. CHF with mild diastolic dysfunction - stable, does not appear to need low dose Lasix at this time. 8. OA - Tylenol prn. 9. debility - transfer to detention today if insurance approves. Cannot return to his previous Independent Living situation. Comment Review of Relevant I have reviewed the following items morgan (where applicable) has been applied. Labs Laboratory Tests Test 03/19/19 11:54 03/19/19 16:58 03/19/19 20:30 03/20/19 07:52 Glucose (Fingerstick) 163 mg/dL (70-99) 179 mg/dL (70-99) 234 mg/dL (70-99) 150 mg/dL (70-99) Test 03/20/19 11:58 03/20/19 16:40 03/20/19 21:48 Glucose (Fingerstick) 149 mg/dL (70-99) 81 mg/dL (70-99) 101 mg/dL (70-99) Laboratory Tests Test 03/20/19 11:58 03/20/19 16:40 03/20/19 21:48 Glucose (Fingerstick) 149 mg/dL (70-99) 81 mg/dL (70-99) 101 mg/dL (70-99) Microbiology 03/17/19 Urine Culture - Preliminary, Resulted 03/17/19 Urine Culture Result 1 (MARTA) - Preliminary, Resulted Medications Current Medications Labetalol HCl (Normodyne Iv Push) 20 mg 1X ONCE IVP Last administered on at 12:14; Start 03/17/19 at 12:00; Stop 03/17/19 at 12:01; Status DC Ondansetron HCl (Zofran) 4 mg PRN Q8HRS PRN IV NAUSEA/VOMITING; Start 03/17/19 at 13:15; Stop 03/18/19 at 13:14; Status DC Acetaminophen/ Hydrocodone Bitart (Lortab 5/325) 1 tab 1X ONCE PO Last administered on 03/17/19at 14:23; Start 03/17/19 at 14:15; Stop 03/17/19 at 14:16; Status DC Insulin Human Lispro (HumaLOG) 0-7 UNITS TIDWMEALS SQ Last administered on 03/18/19at 13:00; Start 03/18/19 at 08:00 Dextrose (Dextrose 50%-Water Syringe) 12.5 gm PRN Q15MIN PRN IV SEE COMMENTS; Start 03/18/19 at 07:45 Ceftriaxone Sodium (Rocephin) 1 gm Q24H IVP Last administered on 03/19/19at 08:29; Start 03/18/19 at 09:00; Stop 03/19/19 at 10:31; Status DC Acetaminophen (Tylenol) 1,000 mg PRN Q6HRS PRN PO pain Last administered on 03/19/19at 21:00; Start 03/18/19 at 07:45 Amlodipine Besylate (Norvasc) 10 mg DAILY PO Last administered on 03/20/19at 08:41; Start 03/18/19 at 09:00 Aspirin (Ecotrin) 81 mg DAILY PO Last administered on 03/20/19 08:42; Start 03/18/19 at 09:00 Losartan Potassium (Cozaar) 50 mg DAILY PO Last administered on 03/18/19at 08:48; Start 03/18/19 at 09:00; Stop 03/19/19 at 07:55; Status DC Metformin HCl (Glucophage) 500 mg BIDWMEALS PO Last administered on 03/20/19at 08:42; Start 03/18/19 at 09:00 Metoprolol Succinate (Toprol Xl) 25 mg DAILY PO Last administered on 03/20/19 08:42; Start 03/18/19 at 09:00 Glipizide (Glucotrol Er) 5 mg DAILY08 PO Last administered on 03/19/19 08:26; Start 03/18/19 at 08:00 Atorvastatin Calcium (Lipitor) 20 mg QHS PO Last administered on 03/20/19 21:39; Start 03/18/19 at 21:00 Repaglinide (Prandin) 1 mg BIDAC PO Last administered on 03/20/19 17:32; Start 03/18/19 at 08:00 Linagliptin (Tradjenta) 5 mg DAILY PO Last administered on 03/20/19 08:42; Start 03/18/19 at 09:00 Non-Formulary Medication (Sitagliptin Phosphate (Januvia)) 100 mg DAILY PO ; Start 03/18/19 at 09:00; Status UNV Rivaroxaban (Xarelto) 20 mg DAILYWSUP PO Last administered on 03/18/19 17:59; Start 03/18/19 at 17:00; Stop 03/19/19 at 15:48; Status DC Influenza Virus Vaccine Quadrival (Afluria Quad 2019-20 (3yr Up) Syringe) 0.5 ml ONCE ONCE VAX IM Last administered on 03/18/19 13:00; Start 03/18/19 at 09:00; Stop 03/18/19 at 09:01; Status DC Lactobacillus Rhamnosus (Culturelle) 1 cap BID PO Last administered on 03/20/19 21:39; Start 03/18/19 at 21:00 Lorazepam (Ativan Inj) 0.25 mg PRN Q6HRS PRN IV ANXIETY / AGITATION; Start 03/18/19 at 17:30; Stop 03/19/19 at 07:55; Status DC Losartan Potassium (Cozaar) 100 mg DAILY PO Last administered on 03/20/19 08:41; Start 03/19/19 at 09:00 Lorazepam (Ativan) 0.25 mg PRN Q6HRS PRN PO agitation Last administered on 03/19/19 21:00; Start 03/19/19 at 08:00 Donepezil HCl (Aricept) 5 mg DAILY PO Last administered on 10/3/19at 08:42; Start 03/19/19 at 09:00 Ceftriaxone Sodium (Rocephin Im) 1 gm DAILY IM Last administered on 03/20/19at 08:42; Start 03/20/19 at 09:00 Vitamin A/Vitamin D (Vitamin A & D Ointment) 1 wyatt PRN BID PRN TP SKIN PROTECTION; Start 03/19/19 at 21:00 Rivaroxaban (Xarelto) 15 mg DAILYWSUP PO Last administered on 03/19/19at 17:22; Start 03/19/19 at 17:00; Stop 03/20/19 at 11:21; Status DC Info (Anti-Coagulation Monitoring By Pharmacy) 1 each PRN DAILY PRN MC SEE COMMENTS Last administered on 03/20/19at 11:16; Start 03/20/19 at 11:15 Rivaroxaban (Xarelto) 15 mg DAILYWSUP PO Last administered on 03/20/19at 17:32; Start 03/20/19 at 17:00 Active Scripts Active Pravastatin Sodium 80 Mg Tablet 1 Tab PO DAILY Furosemide 20 Mg Tablet 1 Tab PO DAILY Glipizide Er (Glipizide) 5 Mg Tab.er.24 1 Tab PO DAILY Losartan Potassium 50 Mg Tablet 50 Mg PO DAILY 30 Days Aspirin Ec (Aspirin) 81 Mg Tablet.dr 1 Tab PO DAILY Repaglinide 1 Mg Tablet 1 Mg PO BIDAC 30 Days Reported Xarelto (Rivaroxaban) 20 Mg Tablet 20 Mg PO Januvia (Sitagliptin Phosphate) 100 Mg Tablet 100 Mg PO DAILY Metoprolol Succinate ( Xl ) (Metoprolol Succinate) 25 Mg Tab.er.24h 25 Mg PO DAILY Metformin Hcl 500 Mg Tablet 1 Tab PO BID Amlodipine Besylate 10 Mg Tablet 1 Tab PO DAILY Vitals/I & O Vital Sign - Last 24 Hours 03/20/19 03/20/19 03/20/19 03/20/19 08:10 08:41 08:41 08:42 Pulse 73 73 73 B/P (MAP) 155/73 155/73 155/73 O2 Delivery Room Air 03/20/19 03/20/19 03/20/19 03/20/19 11:00 15:00 19:00 20:00 Temp 98.1 97.6 99.7 98.1 97.6 99.7 Pulse 97 82 87 Resp 18 18 18 B/P (MAP) 132/63 (86) 160/90 (113) 145/84 (104) Pulse Ox 98 97 95 O2 Delivery Room Air Room Air Room Air Room Air 03/20/19 03/21/19 23:00 03:00 Temp 98.6 98.8 98.6 98.8 Pulse 77 75 Resp 16 B/P (MAP) 128/79 (95) 133/80 (97) Pulse Ox 97 97 O2 Delivery Room Air Room Air Nutrition Consultation Dietary Evaluation: Recommendations by RD: Increase Calorie Intake, Protein supplementation Comments: glucerna tid REC mvi and vit c per wound protocal Expected Outcomes/Goals: to meet > 75% est nutr needs Malnutrition Findings: Body Fat Depletion (Non Severe: Mild Depletion Weight Status: Underweight LIS FREDERICK MD Mar 21, 2019 08:07
[2019-03-21] MEDS ORDERED: LORA0.5T PO (08:12)
[2019-03-21] MEDS ORDERED: LOSA-73 PO (08:12)
[2019-03-21] MEDS ORDERED: ACET500T68 PO (08:12)
[2019-03-21] MEDS ORDERED: DONE5TAB56 PO (08:12)
[2019-03-21] MEDS ORDERED: CEPH500C PO (08:12)
--- NOTE | 2019-03-21 08:14 | SNU/HH DC ---
DISCHARGE ORDERS DISCHARGE INFORMATION: DISCHARGE DATE: Mar 21, 2019 FINAL DIAGNOSIS Problems Medical Problems: (1) Frequent falls Status: Acute (2) Syncope and collapse Status: Acute CONDITION ON DISCHARGE: Stable CODE STATUS: Code Status: DNR/DNI [facility]: SNF STAY <30 DAYS: Yes POST DISCHARGE ORDERS: DIET AFTER DISCHARGE: ADA DISCHARGE MEDICATIONS: Home Meds Active Scripts Cephalexin (CEPHALEXIN) 500 Mg Capsule, 2 CAP PO BID for uti, #40 CAP Start 03/22/19. Prov:LIS FREDERICK MD 03/21/19 Lorazepam (LORAZEPAM) 0.5 Mg Tablet, 0.25 MG PO PRN Q6HRS PRN for agitation for 30 Days, TAB Prov:LIS FREDERICK MD 03/21/19 Acetaminophen (ACETAMINOPHEN) 500 Mg Tablet, 1000 MG PO PRN Q6HRS PRN for pain for 30 Days, TAB Prov:LIS FREDERICK MD 03/21/19 Losartan Potassium (COZAAR ) 50 Mg Tablet, 100 MG PO DAILY for htn for 30 Days, #60 TAB Prov:LIS FREDERICK MD 03/21/19 Donepezil Hcl (ARICEPT) 5 Mg Tablet, 5 MG PO DAILY for memory loss for 30 Days, #30 TAB Prov:LIS FREDERICK MD 03/21/19 Pravastatin Sodium (PRAVASTATIN SODIUM) 80 Mg Tablet, 1 TAB PO DAILY for cholesterol, #30 TAB 5 Refills Prov:LIS FREDERICK MD 03/18/19 Glipizide (GLIPIZIDE ER) 5 Mg Tab.er.24, 1 TAB PO DAILY for dm, #30 TAB 5 Refills Prov:LIS FREDERICK MD 03/18/19 Aspirin (ASPIRIN EC) 81 Mg Tablet.dr, 1 TAB PO DAILY for blood thinner, #30 TAB 3 Refills Prov:LIS FREDERICK MD 03/18/19 Repaglinide (REPAGLINIDE) 1 Mg Tablet, 1 MG PO BIDAC for dm for 30 Days, #60 TAB Prov:LIS FREDERICK MD 03/18/19 Reported Medications Rivaroxaban (XARELTO) 20 Mg Tablet, 20 MG PO 01/16/15 Sitagliptin Phosphate (JANUVIA) 100 Mg Tablet, 100 MG PO DAILY, TAB 01/16/15 Metoprolol Succinate (METOPROLOL SUCCINATE ( XL )) 25 Mg Tab.er.24h, 25 MG PO DAILY for FOR HYPERTENSION, #30 TAB 0 Refills 01/16/15 Metformin Hcl (METFORMIN HCL) 500 Mg Tablet, 1 TAB PO BID, #60 TAB 3 Refills 01/16/15 Amlodipine Besylate (AMLODIPINE BESYLATE) 10 Mg Tablet, 1 TAB PO DAILY, #30 TAB 5 Refills 01/16/15 Discontinued Reported Medications Losartan Potassium (LOSARTAN POTASSIUM ) 25 Mg Tablet, 1 TAB PO DAILY, #90 TAB 1 Refill 01/16/15 Pravastatin Sodium (PRAVASTATIN SODIUM) 20 Mg Tablet, 1 TAB PO DAILY, #30 TAB 5 Refills 01/16/15 Discontinued Scripts Furosemide (FUROSEMIDE) 20 Mg Tablet, 1 TAB PO DAILY for chf, #90 TAB 1 Refill Prov:LIS FREDERICK MD 03/18/19 Losartan Potassium (LOSARTAN POTASSIUM) 50 Mg Tablet, 50 MG PO DAILY for HYPERTENSION for 30 Days, #30 TAB Prov:LIS FREDERICK MD 03/18/19 Sitagliptin Phosphate (JANUVIA) 100 Mg Tablet, 1 TAB PO DAILY for dm, #30 TAB 5 Refills Prov:LIS FREDERICK MD 03/18/19 LIS FREDERICK MD Mar 21, 2019 08:14
[2019-03-21] MEDS: REPAGLINIDE 0.5 MG TABLET PO SCH (08:16)
[2019-03-21] MEDS: LOSARTAN POTASSIUM 50 MG TABLET. PO SCH (08:16)
[2019-03-21] MEDS: glipiZIDE ER 2.5 MG TAB.ER.24 PO SCH (08:16)
[2019-03-21] MEDS: ASPIRIN ENTERIC COATED 81 MG TABLET.DR. PO SCH (08:17)
[2019-03-21] MEDS: LACTOBACILLUS RHAMNOSUS GG 1 CAPSULE. PO SCH (08:17)
[2019-03-21] MEDS: METOPROLOL SUCC 24HR ER 25 MG TAB.ER.24H. PO SCH (08:17)
[2019-03-21] MEDS: DONEPEZIL HCL 5 MG TABLET. PO SCH (08:17)
[2019-03-21] MEDS: amLODIPine BESYLATE 10 MG TABLET PO SCH (08:17)
[2019-03-21] MEDS: metFORMIN 500 MG TABLET PO SCH (08:17)
[2019-03-21] MEDS: LINAGLIPTIN 5 MG TABLET PO SCH (08:17)
--- NOTE | 2019-03-21 09:04 | DS ---
DATE OF DISCHARGE: 03/21/2019 DATE OF DISCHARGE: 03/21/2019 CHIEF COMPLAINT: Possible syncope. HISTORY OF PRESENT ILLNESS AND HOSPITAL COURSE: The patient is an 88-year-old male with memory loss, who was brought to the Emergency Room by ambulance for evaluation of a possible syncopal episode. He lives in an independent living facility and his daughter had apparently found him on the floor on the morning of admission. There was no history available as to what had happened or how long he had been down, and he was not able to provide this due to his memory loss. Evaluation in the Emergency Room included x-rays and CTs, which did not show any acute fractures. The family did not feel that he was able to return home, so he was admitted for further care. Urinalysis at admission showed white blood cells too numerous to count. Urine culture was ordered, and the patient was started on daily Rocephin for treatment of a presumed urinary tract infection. Preliminary urine culture is positive for E. coli greater than 100,000. Final culture report is still pending at the time of this dictation. The patient was placed on telemetry where he remained in sinus rhythm. He had no further episodes of syncope or any other symptoms similar to this. His memory loss has been gradually worsening. He was already becoming unsafe to be in his independent situation by himself, and his family was aware of this. He does have significant debility present, and physical and occupational therapy recommended to stay on [facility]. The family was in agreement with this. He has been accepted at the [facility]. We will transfer him there as soon as insurance approval has been obtained for this. The patient has diabetes mellitus which is controlled with oral medication. His blood pressure was mildly elevated and so his losartan was increased and control of his blood pressure has improved with this. He has a history of paroxysmal atrial fibrillation. He appeared to remain in sinus rhythm during his hospital stay. His usual medications from Cardiology were continued. He has osteoarthritis with chronic joint pain and received Tylenol as needed for this. He has congestive heart failure with mild diastolic dysfunction. A recent echocardiogram showed a preserved ejection fraction of 50%. He had been on daily low-dose Lasix for treatment of lower extremity edema. He did not have any edema during his hospital stay and the Lasix was held and will not be resumed at this time. The patient was started on low-dose Aricept due to his memory loss. FINAL DIAGNOSES: 1. Urinary tract infection. 2. Progressive memory loss. 3. Hypertension. 4. Diabetes mellitus type 2. 5. History of paroxysmal atrial fibrillation. 6. Congestive heart failure with mild diastolic dysfunction. 7. Osteoarthritis. 8. Debility. DISCHARGE MEDICATIONS: Tylenol p.r.n., Keflex 500 mg 2 p.o. b.i.d. x 3 days and then discontinue, Aricept 5 mg daily, lorazepam 0.25 mg q. 6 hours p.r.n. agitation, losartan 100 mg daily, amlodipine 10 mg daily, aspirin 81 mg daily, glipizide ER 5 mg daily, metformin 500 mg b.i.d., Toprol-XL 25 mg daily, pravastatin 80 mg daily, repaglinide 1 mg b.i.d. before meals, Xarelto 20 mg daily, and Januvia 100 mg daily. FOLLOWUP: Followup is with Dr. Harper after discharge from [facility]. The patient received his flu shot during his hospital stay. LIS HARPER MD DR: WILLIAM/sam JOB#: [id number] / [id number] ISAEL
[2019-03-21] MEDS: cefTRIAXone IM 1 GM VIAL IM SCH (09:14)
--- NOTE | 2019-03-21 10:00 | NUR ---
[facility] following pt. Insurance has approved SNU at [facility]. 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 Orders faxed to [facility] and pt will transport via facility arranged w/c van at 1500. Packet on chart. Discussed wtih RN.
[2019-03-21 11:00] VITALS: BP 122/67
--- NOTE | 2019-03-21 15:08 | NUR ---
Discharge Note: [facility] Discharge instructions and discharge home medications reviewed with RN at [facility] of and a copy given. All questions have been answered and understanding verbalized. The following instructions and handouts were given: copy of chart, medication reconciliation and discharge instructions. Discontinued lines and drains: Peripheral IV discontinued intact. Patient discharged to Home or Self Care with Transport Personnel via Wheelchair
== END 2019-03-21 15:10 | DRG 690 ==
LOC: ER 09:40 → OBSVTOIN 13:00 → ED HOLD 13:00 → 6 SOUTH 16:31 → 5 SOUTH 03-19 20:09
PROVIDERS: ADMIT Family Medicine; ATTEND Family Medicine
DX: N39.0 Urinary tract infection, site not specified (principal); I50.32 Chronic diastolic (congestive) heart failure; I11.0 Hypertensive heart disease with heart failure; E11.9 Type 2 diabetes mellitus without complications; B96.20 Unspecified Escherichia coli [E. coli] as the cause of diseases classified elsewhere; E78.00 Pure hypercholesterolemia, unspecified; E78.5 Hyperlipidemia, unspecified; F02.80 Dementia in other diseases classified elsewhere, unspecified severity, without behavioral disturbance, psychotic disturbance, mood disturbance, and anxiety; G30.9 Alzheimer's disease, unspecified; G89.29 Other chronic pain; I48.0 Paroxysmal atrial fibrillation; M19.90 Unspecified osteoarthritis, unspecified site; R29.6 Repeated falls; Z79.82 Long term (current) use of aspirin; Z85.46 Personal history of malignant neoplasm of prostate; Z86.73 Personal history of transient ischemic attack (TIA), and cerebral infarction without residual deficits; Z92.3 Personal history of irradiation; Z87.891 Personal history of nicotine dependence
CPT/HCPCS: 36415; 70450; 71045; 72100; 72170; 80048; 80053; 81001; 82962; 83735; 84484; 85025; 85610; 85730; 87086; 87186; 90471; 90686; 93005; 93926; 96374; J0696; J1815; J3490; 97110; 97530; 97535; 99285-25; G0378